=== PATIENT | male | born 1980 | race Caucasian/White ===

== ENCOUNTER 2019-12-23 11:49 | Emergency (ER) | payer SELFPAY ==
[2019-12-23 12:20] VITALS: BP 120/69; PULSE 79; RESP 18; TEMP 36.2; O2SAT 97; BMI 29.0
--- NOTE | 2019-12-23 12:40 | XRR_ITS ---
PROCEDURE INFORMATION: Exam: XR Left Foot Complete Exam date and time: 12/23/2019 12:53 PM Age: 39 years old Clinical indication: Injury or trauma; Injury history: Kicked a picnic table; Initial encounter; Blunt trauma; Foot; Left; Injury date: 12/23/19; Additional info: Left great toe pain and left plantar foot pain TECHNIQUE: Imaging protocol: XR Left foot. Views: 3 or more views. COMPARISON: No relevant prior studies available. FINDINGS: Bones/joints: Negative for acute bony abnormality. Soft tissues: Normal. XR/XR foot LT min 3V* [id number] IMPRESSION: No acute findings.
--- NOTE | 2019-12-23 12:47 | ED_ITS ---
HPI - Extremity Problem General: Chief complaint: Extremity Injury, Lower Stated complaint: LEFT BIG TOE PAIN Time Seen by Provider: 12/23/19 12:41 History of Present Illness: HPI Narrative: 39-year-old male patient presents to the emergency department with left great toe pain and plantar left foot pain. He reports kicked a full table approximately 1 hour prior to [place] the park injuring the left great toe. He reports walked to the hospital from the park to the hospital with bare feet. He reports left foot pain to the plantar surface x1 month. MD Complaint: extremity pain (Left great toe) Onset (ago): hour(s) (Approximately 1 hour prior to arrival) Pain Consistency: constant Location: left, lower extremity and other (Left great toe) Severity scale (1-10): 3 Quality: aching Radiation: proximal Relieving factors: nothing Exacerbating factors: range of motion and weight bearing Associated symptoms: Reports no associated symptoms; Deny chest pain, fever(s) or rash Context: other (Patient is not wearing shoes, he reports left his shoes at the park.) Review of Systems General: Reports: 10 or more systems reviewed and unremarkable except in HPI and below Const: Denies: fever(s), chills or diaphoresis Eyes: Denies: blurry vision or eye redness ENMT: Denies: throat pain, dental pain or disequilibrium Card: Denies: chest pain, palpitations or irregular heart rhythm Resp: Denies: dyspnea, productive cough, non-productive cough or wheezing GI: Denies: abdominal pain, nausea or vomiting : Denies: dysuria Musc: Reports: extremity pain (left distal foot) and joint pain (left toe pain); Denies: neck pain or back pain Skin/Breast: Denies: rash or pruritus Neuro: Denies: headache(s), weakness in extremities or behavioral changes Quan/Lymph: Denies: easy bruising Physical Exam Const: COMMON NORMALS: no acute distress, patient oriented x3, healthy appearing and alert GENERAL APPEARANCE: cooperative, comfortable and well hydrated HENMT: COMMON NORMALS: normocephalic, Normal external nose present and moist oral mucous membranes HEAD & SCALP: normocephalic NOSE: Normal external nose present Eye: COMMON NORMALS: Equal, round and reactive pupils present and EOMs intact bilaterally GENERAL EYE: appearance normal, both eyes and all related structures PUPIL: Yes Equal, round and reactive pupils present Neck/C-Spine: COMMON NORMALS: full ROM and no lymphadenopathy GENERAL: Yes normal visual inspection and Yes trachea midline CERVICAL SPINE: Yes cervical ROM normal, Yes normal cervical lordosis, No pain with cervical ROM, No Cervical spine tenderness and No Paracervical muscle tenderness Lymph: LYMPHATIC: no lymphadenopathy noted Chest: COMMONS NORMALS: normal inspection of the chest Resp: COMMON NORMALS: normal respiratory effort and clear to auscultation bilaterally AUSCULTATION: clear to auscultation bilaterally Cardio: COMMON NORMALS: regular rhythm, S1 normal heart sound present, S2 normal heart sound present and Peripheral pulses 2+ throughout RHYTHM: regular rhythm HEART SOUNDS: S1 normal heart sound present and S2 normal heart sound present PERIPHERAL PULSES: Peripheral pulses 2+ throughout GI: COMMON NORMALS: Soft to palpation and non-tender INSPECTION: Yes normal to inspection PALPATION: Yes Soft to palpation : COMMON NORMALS: Yes no CVA tenderness BLADDER/KIDNEY EXAM: Yes no CVA tenderness Back/Pelvis: COMMON NORMALS: no CVA tenderness and thoracic and lumbar spine normal to inspection Extremity: COMMON NORMALS: capillary refill normal NARRATIVE EXTREMITY EXAM: Scattered abrasions noted to the dorsal anterior shins. No signs and symptoms of infection GENERAL: Yes normal exam except as noted, No calf tenderness and No pulses abnormal LEFT LOWER EXTREMITY: Yes ankle joint (intact, negative drawer exam) Left ankle: Yes ROM (full ) and Yes foot & digits Left foot and digits: Yes inspection (Left plantar foot with debris, again not wearing shoes), Yes palpation (Pain to the distal first MTP, plantar surface only, no open wounds), Yes ROM and Yes neurovascular exam (Intact) OTHER: Left ankle with dorsiflexion and extension noted without pain with range of motion, EXTREMITY IMAGE (FRONT): 1. left toenail with slight nail avulsion distally, medially, limited dorsiflexion/extension secondary to pain, full range of motion to all remaining toes noted on the left foot. Neuro: COMMON NORMALS: patient oriented x3 and no focal motor deficits SENSORIUM/ORIENTATION: Yes alert Psych: COMMON NORMALS: mental status grossly normal, Normal thought process present and cooperative ACTIVITY/MOTOR BEHAVIOR: Yes appropriate eye contact THOUGHT PROCESS: Normal thought process present Skin: COMMON NORMALS: no rashes or lesions noted and turgor normal GENERAL SKIN EXAM: no rashes or lesions noted and turgor normal Course Vital Signs: Vital signs: Vital Signs Temperature 97.2 F L 12/23/19 12:20 Pulse Rate 66 12/23/19 13:50 Respiratory Rate 16 12/23/19 13:50 Blood Pressure 101/61 12/23/19 13:50 Pulse Oximetry 95 12/23/19 13:50 MDM - Extremity (Nontraumatic) Imaging Data^: Xray Ortho: Radiologist's impression: [address] [address] XRay Report Signed Patient: Jitendra Mohamud #: [id number] : 1980Acct#:[id number] Age/Sex: 39 / MADM Date: 12/23/19 Loc: ERRoom/Bed: Attending Dr: Ordering Provider/Ordering MD: Raysa Navarro Date of Service: 12/23/19 Procedure(s): XR foot LT min 3V* [id number] Accession Number(s): [id number] Report Number: [id number] PROCEDURE INFORMATION: Exam: XR Left Foot Complete Exam date and time: 12/23/2019 12:53 PM Age: 39 years old Clinical indication: Injury or trauma; Injury history: Kicked a picnic table; Initial encounter; Blunt trauma; Foot; Left; Injury date: 12/23/19; Additional info: Left great toe pain and left plantar foot pain TECHNIQUE: Imaging protocol: XR Left foot. Views: 3 or more views. COMPARISON: No relevant prior studies available. FINDINGS: Bones/joints: Negative for acute bony abnormality. Soft tissues: Normal. XR/XR foot LT min 3V* [id number] IMPRESSION: No acute findings. Dictated By:Harpreet Lam Signed By:Eula Lam Date/Time:12/23/19 1353 DD/ 1352 Discharge Plan Discharge Patient Disposition: Home Clinical Impression: Abrasion Contusion Qualifiers: Encounter type: initial encounter Contusion area: toe Toe: great toe Damage to nail status: with damage Laterality: left Qualified Code(s): S90.212A - Contusion of left great toe with damage to nail, initial encounter Foot pain Qualifiers: Laterality: left Qualified Code(s): M79.672 - Pain in left foot Condition: Stable Discharge Orders: Discharge Order (Routine); Ordered 12/23/19 Ordered By: Raysa Navarro Discharge Diet: Usual diet Discharge Activity: Resume usual activity and Limit activity as instructed Patient Instructions: Subungual Hematoma (ED), Abrasion (ED) Activity Restrictions/Additional Instructions: You will need to follow-up with podiatry, Dr. Baez for left foot pain. Remain in postop shoe until pain has improved Monitor the left toenail for infection, may complete warm water soaks several times daily to help with pain keep the left foot elevated as much as possible to help with pain Wear shoes to prevent injury to the feet director of radio services will be contacting you in regards to an appointment with Dr. Baez. You can take ibuprofen or Tylenol as needed for pain. 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
--- NOTE | 2019-12-23 13:31 | DCPLANNER ---
title manager had message to schedule a follow up appointment for patient with ortho. title manager called the ortho clinic, spoke with Pat, gave clinic patients information. title manager was told that patients information would be printed and reviewed. Clinic will call patient with appointment information.
[2019-12-23] MEDS: tetanus-dipt-pertussis 0.5 mL SDV IM (13:41)
[2019-12-23 13:50] VITALS: BP 101/61; PULSE 66; RESP 16; O2SAT 95
--- NOTE | 2019-12-23 13:51 | PC.NURSE ---
vo with readback from provider pool to hold post op shoe.
--- NOTE | 2020-01-05 12:45 | DCPLANNER ---
photography manager called ortho, spoke with Pat to confirm that a follow up appointment had been scheduled for patient. photography manager was told that clinic has tried several times to contact patient to schedule an appointment, unable to contact patient.
== END 2019-12-23 13:54 | disposition home or self-care (01) ==
PROVIDERS: Emergency Provider Nurse Practitioner Family
DX: S90.212A Contusion of left great toe with damage to nail, initial encounter (principal); W22.09XA Striking against other stationary object, initial encounter; Z23 Encounter for immunization
CPT/HCPCS: 12345; 73630; 90471; 90715; 99281; 99283

== ENCOUNTER 2019-12-24 00:44 | Inpatient (IN) | payer SELFPAY ==
[2019-12-24 00:46] VITALS: BP 161/100; PULSE 110; RESP 16; TEMP 36.6; O2SAT 99; BMI 23.3
--- NOTE | 2019-12-24 00:50 | ED_ITS ---
HPI - Psych General: Chief Complaint: Psychiatric Symptoms Stated Complaint: SI Time Seen by Provider: 12/24/19 00:45 Source: patient and EMS Mode of arrival: EMS Limitations: no limitations History of Present Illness: HPI Narrative: 39-year-old male states has been having increased suicidal thoughts. He states he has been doing meth today and this felt like killing himself. He states he feels like taking a turkey baster full of acid. He states he feels like he needs to be admitted in the [facility]. He denies any alcohol use. He did admit to using methamphetamine. Denies any worsening improving factors. Associated symptoms: Reports depression and suicidal ideation Review of Systems Const: Denies: fever(s), chills, body aches or change in appetite Eyes: Denies: blurry vision or eye discomfort ENMT: Denies: throat pain or dental pain Card: Denies: chest pain Resp: Denies: dyspnea GI: Denies: abdominal pain, nausea, vomiting or diarrhea : Denies: dysuria Musc: Denies: neck pain or back pain Skin/Breast: Denies: rash Neuro: Denies: headache(s) Psych: Reports: depression and suicidal ideation Quan/Lymph: Denies: easy bruising All/Imm: Denies: urticaria Physical Exam Const: COMMON NORMALS: no acute distress, patient oriented x3 and healthy appearing HENMT: COMMON NORMALS: normocephalic and atraumatic HEAD & SCALP: normocephalic and atraumatic Eye: COMMON NORMALS: Equal, round and reactive pupils present and EOMs intact bilaterally PUPIL: Yes Equal, round and reactive pupils present Neck/C-Spine: COMMON NORMALS: full ROM and supple Chest: COMMONS NORMALS: normal inspection of the chest and normal palpation of entire chest wall Resp: COMMON NORMALS: normal respiratory effort, No retractions, No use of accessory muscles and clear to auscultation bilaterally AUSCULTATION: clear to auscultation bilaterally Cardio: COMMON NORMALS: regular rate, regular rhythm and No murmurs present (Cardio) RATE: regular rate RHYTHM: regular rhythm GI: COMMON NORMALS: Normal to inspection, nondistended, normoactive bowel sounds present, Soft to palpation, non-tender and no masses PALPATION: Yes Soft to palpation Extremity: COMMON NORMALS: normal to inspection and full ROM Neuro: COMMON NORMALS: patient oriented x3, moves all extremities and no focal motor deficits Psych: COMMON NORMALS: mental status grossly normal and cooperative ATTITUDE: Yes paranoid MOOD & AFFECT: Yes anxious THOUGHT CONTENT: Yes Suicidality present Skin: COMMON NORMALS: no rashes or lesions noted and no wounds GENERAL SKIN EXAM: no rashes or lesions noted MDM - Psych MDM Narrative: Medical decision making narrative: Patient presents here with suicidal ideation with a plan to kill himself. Patient placed on a 96-hour hold I spoke to psychiatrist and will admit. Patient is medically cleared. Lab Data: Labs: Lab Results 12/24/19 12/24/19 12/24/19 Range/Units 00:55 00:55 01:08 WBC 14.0 H (4.0-10.0) 10^3/ uL RBC 5.23 (4.1-5.3) 10^6/u L Hgb 14.5 (11.7-16.6) g/dL Hct 44.9 (42.0-52.0) % MCV 85.9 (80-94) fL MCH 27.7 L (28.0-34.0) pg MCHC 32.3 (30.0-36.0) g/dL RDW 13.7 (12.1-15.1) % Plt Count 243 (130-400) 10^3/c mm MPV 9.6 (7.4-10.4) fL Neut % (Auto) 77.1 % Lymph % (Auto) 14.8 % Ashe % (Auto) 6.9 % Eos % (Auto) 0.6 % Baso % (Auto) 0.3 % Neut # (Auto) 10.78 H (1.8-7.7) 10^3/u L Lymph # (Auto) 2.1 (0.8-4.8) 10^3/u L Ashe # (Auto) 1.0 H (0.2-0.9) 10^3/u L Eos # (Auto) 0.1 (0.0-0.8) 10^3/u L Baso # (Auto) 0.0 (0.0-0.1) 10^3/u L Nucleated RBC % (a uto) 0 % Nucleated RBCs # 0.0 /100WBC Sodium 136 (136-145) mmol/L Potassium 3.6 (3.5-5.1) mmol/L Chloride 97 L (98-107) mmol/L Carbon Dioxide 28 (22-29) mmol/L Anion Gap 14.6 (5-19) BUN 21 H (6-20) mg/dL Creatinine 1.2 (0.7-1.2) mg/dL GFR Calculation 68.1 L (90-130) mL/min Glucose 124 H (65-115) mg/dL Calculated Osmolal ity 286 (285-295) mOsm/k g Calcium 8.8 (8.5-10.5) mg/dL Total Bilirubin 0.5 (0.15-1.2) mg/dL AST 92 H (0-40) U/L ALT 72 H (0-41) U/L Alkaline Phosphata se 75 (40-130) IU/L Total Protein 7.9 (6.6-8.7) g/dL Albumin 4.6 (3.5-5.2) g/dL Globulin 3.3 (1.3-4.6) g/dL Salicylates < 0.3 L (3-10) mg/dL Urine Opiates Scre en Negative (Negative) ng/mL Acetaminophen < 5.0 L (10-30) ug/mL Ur Barbiturates Sc reen Negative (Negative) ng/mL Ur Phencyclidine S crn Negative (Negative) ng/mL Ur Amphetamines Sc reen Positive H (Negative) ng/mL U Benzodiazepines Scrn Negative (Negative) ng/mL Urine Cocaine Scre en Negative (Negative) ng/mL U Marijuana (THC) Screen Negative (Negative) ng/mL Ethyl Alcohol < 10 (0-10) mg/dL Discharge Plan Discharge Patient Disposition: Admitted As Inpatient Admit Provider: Kelvin Mtz Clinical Impression: Suicidal ideation, Methamphetamine abuse Condition: Stable Discharge Date/Time: 12/24/19 01:49 Coding Level of Care Code ED Nuclear Medicine Specialist for [facility] Fwmaya Exam Comprehensive
[2019-12-24 01:07] LABS: Basophils % 0.3 %; Eosinophils # 0.1 10^3/uL (0.0-0.8); Eosinophils % 0.6 %; Hematocrit 44.9 % (42.0-52.0); Hemoglobin 14.5 g/dL (11.7-16.6); Lymphocytes # 2.1 10^3/uL (0.8-4.8); Lymphocytes % 14.8 %; Mean Corpuscular HGB Conc 32.3 g/dL (30.0-36.0); Mean Corpuscular Hemoglobin 27.7 pg (28.0-34.0); Mean Corpuscular Volume 85.9 fL (80-94); Mean Platelet Volume 9.6 fL (7.4-10.4); Monocytes % 6.9 %; Neutrophils # 10.78 10^3/uL (1.8-7.7); Neutrophils % 77.1 %; Nucleated Red Blood Cells % 0 %; Platelet Count 243 10^3/cmm (130-400); Red Blood Count 5.23 10^6/uL (4.1-5.3); Red Cell Distribution Width 13.7 % (12.1-15.1)
[2019-12-24] MEDS: LORazepam 1 mg Tablet 2 MG PO (01:09)
[2019-12-24 01:24] LABS: Alanine Aminotransferase 72 U/L (0-41); Albumin Level 4.6 g/dL (3.5-5.2); Alkaline Phosphatase 75 IU/L (40-130); Anion Gap 14.6 (5-19); Aspartate Amino Transferase 92 U/L (0-40); Blood Urea Nitrogen 21 mg/dL (6-20); Calcium 8.8 mg/dL (8.5-10.5); Carbon Dioxide 28 mmol/L (22-29); Chloride 97 mmol/L (98-107); Globulin 3.3 g/dL (1.3-4.6); Glomerular Filtration Rate 68.1 mL/min (90-130); Glucose 124 mg/dL (65-115); Osmolality Calculated 286 mOsm/kg (285-295); Potassium 3.6 mmol/L (3.5-5.1); Sodium 136 mmol/L (136-145); Total Bilirubin 0.5 mg/dL (0.15-1.2); Total Protein 7.9 g/dL (6.6-8.7)
[2019-12-24 01:28] LABS: Amphetamines Screen Urine Positive (Negative); Barbiturates Screen Urine Negative (Negative); Benzodiazepines Screen Urine Negative (Negative); Cocaine Screen Urine Negative (Negative); Opiate Screen Urine Negative (Negative); PCP Screen Urine Negative (Negative); THC Screen Urine Negative (Negative)
[2019-12-24 01:43] LABS: Acetaminophen < 5.0 ug/mL (10-30); Alcohol Level < 10 mg/dL (0-10); Salicylate < 0.3 mg/dL (3-10)
[2019-12-24 02:04] VITALS: BP 153/84; PULSE 102; RESP 21; TEMP 37; O2SAT 99
--- NOTE | 2019-12-24 02:36 | PC.NURSE ---
Patient wants to be tested for covid
[2019-12-24] MEDS: OLANZapine 5 mg ODT PO (03:35)
--- NOTE | 2019-12-24 03:37 | PC.NURSE ---
Has bandaid on left great toe. Stated he kicked a chair. No redness, no swelling, no sign of infection.
[2019-12-24] MEDS: hyDROXYzine 25 mg Capsule 50 MG PO (03:46)
--- NOTE | 2019-12-24 03:47 | PC.NURSE ---
PRN given for anxiety visteril 50mg Po. Pt is very agitated and paranoid/guarded. His DOA is meth, which he told me he smoked yesterday morning early. His pupils are dilated. This patient is looking around the room with a scared look on his face, states do you hear that and dont you see the shadows . He asked me if anyone in his room. He said someone or something is looking at him. He is looking under the bed for non existent people and shadows in his room. He attempted to go to the dayroom but saw the shadows there also. He s looking in the bathroom, under the bed, and the closet for the noises he is hearing. He stated that he is not comfortable on his bed it keeps moving and going up with him on it. This is not possible as the beds to do not change positions in this unit. Will continue to monitor this patients progress.
--- NOTE | 2019-12-24 04:32 | PC.NURSE ---
Patient attempted to cheek his medication but it was found and administered. Verified that it was taken.
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
[2019-12-24 06:00] VITALS: BP 103/71; PULSE 73; RESP 20; TEMP 37; O2SAT 96
[2019-12-24 14:00] VITALS: BP 125/71; PULSE 86; RESP 18; TEMP 37.5; O2SAT 98
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
[2019-12-24] MEDS: nicotine 2 mg Gum BUCCAL (20:50)
[2019-12-24 20:53] VITALS: BP 126/71; PULSE 75; RESP 20; TEMP 37.1; O2SAT 97
[2019-12-25 06:00] VITALS: BP 122/77; PULSE 82; RESP 20; TEMP 36.7; O2SAT 98
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
[2019-12-25] MEDS: fluoxetine 20 mg Capsule PO (11:10)
[2019-12-25 14:00] VITALS: BP 121/74; PULSE 73; RESP 18; TEMP 37.6; O2SAT 97
[2019-12-25] MEDS: hyDROXYzine 25 mg Capsule 50 MG PO (20:50)
[2019-12-25 20:51] VITALS: BP 125/71; PULSE 78; RESP 14; TEMP 36.4; O2SAT 95
[2019-12-25] MEDS: trazodone 50 mg Tablet PO (20:51)
[2019-12-25] MEDS: nicotine 2 mg Gum BUCCAL (20:51)
--- NOTE | 2019-12-25 21:34 | PC.NURSE ---
PRN TRAZODONE/VISTERIL PT RECEIVED TRAZODONE 50MG PO FOR SLEEP AND HE IS SLEEPING NOW. PT RECEIVED VISTERIL 50MG PO STATING HE WAS ANXIOUS ON ADMINISTRATION BUT IS RESTING NOW.
--- NOTE | 2019-12-26 00:51 | PC.NURSE ---
Follow up TRAZODONE/VISTERIL Patient is sleeping soundly without any apparent signs of distress at this time
[2019-12-26] MEDS: trazodone 50 mg Tablet PO ×2 (04:14→21:42)
--- NOTE | 2019-12-26 04:25 | PC.NURSE ---
Addendum entered by Sujatha Soliz RN 12/26/19 06:39: Patient is sleeping in his room Original Note: PRN Trazodone 50mg PO given to help sleep.
[2019-12-26 06:00] VITALS: BP 120/67; PULSE 62; RESP 17; TEMP 36.6; O2SAT 96
[2019-12-26] MEDS: fluoxetine 20 mg Capsule PO (08:45)
--- NOTE | 2019-12-26 12:22 | P.PN_ITS ---
Subjective NPU Subjective: Interval history: Valentin presented today with a bit of a resumption in his irritability. If for some reason took issue to the fact that I reported our search for his court date yielded nothing. He took that to mean we are going to try to keep him longer. He reports that he is doing fine on the medication and he denied any issues other than wanting to be discharged prior to this court date tomorrow. He is eating fine and sleeping a lot. Mental Status Exam MSE Comments: There is a well-nourished well-developed white male with limited dress, grooming and eye contact. No abnormal movements except for mild psychomotor retardation. Cooperative with exam in mild distress. Speech was normal rate and decreased volume. Mood reported as depressed, affect irritable. Thought process organized. Thought content: Patient denied suicidal or homicidal ideation, no delusions reported, but some paranoia noted, he denied any auditory or visual hallucinations but appeared to be having some prior to admission. He was alert and oriented x3. Insight and judgment are limited but improving. Impulse control is impaired. Vitals/I&O/Wt Last Vital Signs Temp 97.9 F 12/26/19 06:00 Pulse 62 12/26/19 06:00 Resp 17 12/26/19 06:00 BP 120/67 12/26/19 06:00 Pulse Ox 96 12/26/19 06:00 Weight last 48 hrs Weight 64.682 kg Data NPU : 12/24/19 00:55 12/24/19 00:55 A&P Additional A&P Information (1) Methamphetamine abuse: (2) Suicidal ideation: (3) Contusion: (4) Abrasion: (5) Foot pain: (6) Withdrawal from methamphetamine: (7) Depression: (8) Homeless: (9) Psychosis: This is a 39-year-old white male with significant psychosocial stressors with an active methamphetamine addiction who presented in active withdrawal with suicidal ideation intermittently endorsed as well as low mood and observed paranoid/psychotic behavior who presents now wanting to be discharged with on a 96-hour hold. 1. Continue current medication. 2. Continue every 15 minute checks for safety. 3. Encourage individual, group and milieu therapy. 4. Encourage follow-up with a sober living program at the highest level of care to which he is willing to commit. Involuntary Hold Information 96 Hour Hold: 96 Hour Involuntary Admission: Yes Attestations NPU Medical Necessity Statement*: Inpatient hospitalization is medically necessary and the clinically appropriate intervention at this time. We will observe and recommend medications as indicated. We will evaluate for safety for discharge in the next hold. Likely length of stay 1-2 days. Coding Level of Care Code Acute Zipper Setter Chainstitch for [facility]
[2019-12-26 14:00] VITALS: BP 129/81; PULSE 65; RESP 18; TEMP 37.1; O2SAT 99
[2019-12-26 20:46] VITALS: BP 141/80; PULSE 73; RESP 18; TEMP 36.7; O2SAT 98
[2019-12-26] MEDS: hyDROXYzine 25 mg Capsule 50 MG PO (21:12)
[2019-12-27 06:00] VITALS: BP 113/64; PULSE 96; RESP 17; TEMP 36.5; O2SAT 57
[2019-12-27] MEDS: fluoxetine 20 mg Capsule PO (07:36)
[2019-12-27 10:02] VITALS: BP 113/64; PULSE 96; RESP 17; TEMP 36.5; O2SAT 57
--- NOTE | 2019-12-27 10:27 | P.DS_ITS ---
Diagnoses at Discharge Discharge Diagnosis (1) Methamphetamine abuse: Status: Acute (2) Suicidal ideation: Status: Resolved (3) Contusion: Status: Acute Qualifiers: Contusion area: toe Damage to nail status: with damage Encounter type: initial encounter Laterality: left Toe: great toe Qualified Code(s): S90.212A - Contusion of left great toe with damage to nail, initial encounter (4) Abrasion: Status: Acute (5) Foot pain: Status: Acute Qualifiers: Laterality: left Qualified Code(s): M79.672 - Pain in left foot (6) Withdrawal from methamphetamine: Status: Resolved (7) Depression: Status: Acute (8) Homeless: Status: Acute (9) Psychosis: Status: Resolved Reason for Visit Reason for Visit: SI Brief History: Valentin Mohamud is a 39 year old male who presented to the emergency department with the following report: 39-year-old male states has been having increased suicidal thoughts. He states he has been doing meth today and this felt like killing himself. He states he feels like taking a turkey baster full of acid. He states he feels like he needs to be admitted in the psychiatric [facility]. He denies any alcohol use. He did admit to using methamphetamine. Denies any worsening improving factors. Associated symptoms: Reports depression and suicidal ideation. Valentin presented to the unit and very slowly acclimated to the individual group and milieu therapies as he is clearly in methamphetamine withdrawal with juxtaposing periods of lucidity and being near obtunded. Multiple efforts were made to get a reasonable assessment of the situation. Eventually at about 9:00 PM on the night of the day of admission he was alert again and was demanding to be discharged. He was confused feeling like he was on a voluntary commitment but he was advised that he was on a 96-hour hold and that that hold with in 12/30/2019 early in the morning. He reported that there were strange stacia on that led to him being in the hospital but he did not want to elaborate. He Asserting though that he was safe and there will be no reason for him to be held. He was advised that we would assess him daily and get collateral i nformation on the assertions and his affidavits. He endorses being very anxious because he is homeless and he is afraid his shit will end up stolen if he does not get back out there right away. He did not have any clear plan of where to go and what he was going to do so he agreed to have a more robust conversation in the morning. We did review his last hospitalization which was in 2018 and he was seen by this continuity writer. He agreed that it represented a accurate assessment of that historical data without significant changes in that time. An excerpt can be seen below. Per his last inpatient [facility] eval: History of Present Illness Date of Service: Dec 28, 2018 Chief Complaint: I'm cold. I don't know. HPI: Valentin presented today reporting that things have been pretty hectic. He initially very much minimized any drug use but then could not explain why he was acting erratically with the police saying that he needed some help. He sometimes. Endorsed depression and anxiety but was fairly ambivalent about the idea of starting an anti-depressant/antianxiety agent. When he entered the office he was shivering fairly aggressively. In talking about being cold on the outside but burning up on the inside. He could not really explain what that meant. Otherwise he reported that he is not employed, he is likely homeless and that he does not have any prospect on what he is going to do next. He reports he is sleeping well and is eating okay. Per ED eval: HISTORY OF PRESENT ILLNESS Chief Complaint: ANXIOUS, DEPRESSED and SUICIDAL THOUGHTS. This started today. The patient has experienced situational problems but not exhibited a behavior change and was not found wandering and is compliant with medication. Recent drug use. No recent alcohol consumption. Has been depressed but eating or sleeping and had suicidal thoughts. He has had anxiety. No anger, unusual behavior, paranoia, delusions or self-injury inflicted. The symptoms are described as moderate. No injury is present. 38-year-old male brought in by EMS and police. They were called to the scene after he had held a knife to his own throat threatening to kill himself in front of the people around him. He evidently expressed thoughts of killing himself to police on the scene as well. He was distraught, tearful, and ask for help. He presents to the ER saying I'm not a psych patient . I just wanted somebody to talk to . Similar symptoms previously. None. Recent medical care: Not recently seen/assessed. REVIEW OF SYSTEMS No headache, dizziness, weakness, chest pain or palpitations. No abdominal pain, vomiting, diarrhea, black stools or fever. No sore throat, cough, difficulty breathing, urinary frequency or skin rash. No enlarged lymph nodes or joint pain. All other systems reviewed and are negative. PAST HISTORY See nurses notes. ( mental illness). SOCIAL HISTORY Heavy tobacco smoker- 1-2 packs per day. Heavy alcohol use. History of drug use history of drug use. FAMILY HISTORY No history of suicide attempts. ADDITIONAL NOTES The nursing notes have been reviewed. PHYSICAL EXAM Vital Signs: 12/27/2018 21:59 BP: 111/65. HR: 102. RR: 16. O2 saturation: 93%. Temp: 98.1 F. Appearance: Alert. No acute distress. Appearance is normal. He appears intoxicated and agitated. Eyes: Pupils equal, round and reactive to light. Neck: Normal inspection. Neck supple. CVS: Normal heart rate and rhythm. Heart sounds normal. Respiratory: Breath sounds normal. Chest nontender. Abdomen: Soft and nontender. Back: No tenderness. Skin: Normal skin color. Extremities: Extremities exhibit normal ROM. No lower extremity edema. Psych / Neuro: Speech is slurred. Cognition normal. He expresses suicidal thoughts. He does not appear to understand his illness. Cranial nerves normal (as tested). No cerebellar findings. No motor deficit. Allergies: Coded Allergies: NO KNOWN ALLERGIES (Unverified , 12/28/18) Active Meds: Current Hospital Medications: Medications (Trade) Dose Ordered Sig/Dhara Route PRN Reason Start Time Stop Time Status Last Admin Dose Admin Lorazepam (Ativan Tab) 0.5 mg Q4H PRN PO FOR MILD ANXIETY 12/27/18 23:00 Lorazepam (Ativan Tab) 1 mg Q4H PRN PO FOR MODERATE ANXIETY 12/27/18 23:00 Lorazepam (Ativan Tab) 2 mg Q4H PRN PO FOR SEVERE ANXIETY 12/27/18 23:00 12/27/18 23:55 Lorazepam (Ativan Inj) 2 mg Q4H PRN IM For Severe Aggression 12/27/18 23:00 Haloperidol Lactate (Haldol Inj) 5 mg Q4H PRN IM Severe Aggression 12/27/18 23:00 Diphenhydramine HCl (Benadryl Inj) 50 mg ONCE PRN IV Severe Extrapyramidal Symptoms 9/22/19 23:00 Benztropine Mesylate (Cogentin Tab) 1 mg BID PRN PO Mild Extrapyramidal symptoms 12/27/18 23:00 Benztropine Mesylate (Cogentin Inj) 1 mg ONCE PRN IM Severe Extrapyramidal Symptom 12/27/18 23:00 Acetaminophen (Tylenol Tab) 650 mg Q4H PRN PO FOR MILD PAIN 12/27/18 23:00 Trazodone HCl (Trazodone) 50 mg BEDTIME PRN PO FOR SLEEP 12/27/18 23:00 Nicotine (Nicoderm Patch) 21 mg DAILY PRN TD FOR WITHDRAWAL 12/27/18 23:00 Nicotine Polacrilex (Nicotine Gum) 2 mg Q2H PRN PO Withdrawal 12/27/18 23:00 Haloperidol (Haldol Tab) 5 mg Q4H PRN PO For agitation 12/27/18 23:00 12/27/18 23:54 Lorazepam (Ativan Tab) 2 mg Q4H PRN PO FOR AGITATION 12/27/18 23:00 12/27/18 23:53 Thiamine Mononitrate (Thiamine Tab) 100 mg DAILY PO 12/28/18 11:15 Multivitamins Therapeutic (Therapeutic Multivitamin) 1 ea DAILY PO 12/28/18 11:15 Folic Acid/ Cyanocobalamin/ pyridoxin (Folic Acid Tab) 1 mg DAILY PO 12/28/18 11:15 Home Meds: Home Medications: Active No Active Prescriptions or Reported Medications Past Medical History Other Family Medical History: He reports that he has significant mental health issues in his family. He endorses having significant addiction issues in his family. But he was unaware if there were any suicide attempts in his family. Other Past Social History: Developmental history: He reports that he is the product of a normal . He endorses learning to walk and talk and meeting his developmental milestones on time. He reports that he did not have speech therapy or learning support, emotional support but did endorse possibly some special education classes. Psychosocial history: Is a product of his 2 parents which he reports are together to this day. He reports that he has a brother who shares the same two parents and 2 half sisters through his mother. Childhood was ok, no emotional, physical and emotional abuse.He did not graduate from high school or get his GED. He is heterosexual with the longest relationship being 4 years. Never been , no children, no service, or lutheran belief system. Never really worked, currently homeless. Legal history. Numerous incarcerations, longest 2 years at one time. Hospital Course Hospital Course The patient presented to the emergency room reporting increased suicidal thoughts. He endorsed methamphetamine use on December 22 and feeling like killing himself. He stated he felt like taking a turkey blaster full of acid. He endorsed needing to be admitted for psychiatric treatment for depression and suicidal ideation. He was admitted to the neuropsychiatric unit for definitive treatment of those issues. Additionally, once on the unit, it was clear that he was also suffering from paranoia and psychosis. He slowly acclimated to the individual, group, and milieu therapies provided. We started Prozac, which he had a positive response to, and he also had significant improvement from the resolution of the methamphetamine withdrawal, and the psychosis that was likely associated. During the hospitalization, the patient had routine laboratory studies which were within normal limits, except for a few outliers. Additionally, the patient had a general medical evaluation which was within normal limits and revealed no new acute processes. Discharge Summary At the time of discharge the patient denied all lethality, was absent psychosis, and mood and anxiety were well managed. The patient endorsed a plan to avoid all drugs of abuse and to follow-up with outpatient services, as recommended. The patient was evaluated and deemed to be absent credible lethality, and had achieved the maximum benefit from an inpatient hospitalization, and so he was discharged. Involuntary Hold Information 96 Hour Hold: 96 Hour Involuntary Admission: Yes Mental Status Exam MSE Comments: This is a well-nourished, well-developed, white male, with tattoos on his exposed skin, with adequate dress, grooming, and eye contact. No abnormal movements. Cooperative with exam in no acute distress. Speech was normal rate and volume. Mood described as pretty good; affect congruent. Thought process, organized. Thought content: patient denied any suicidal or homicidal ideation, there were no delusions reported or noted, patient denied any auditory or visual hallucinations. Attention, concentration, and memory appeared intact but none were formally tested. He is alert and oriented times three. Insight and judgment are improving. Impulse control is limited. Discharge Data Vitals: Last Vital Signs Temp 97.7 F 12/27/19 10:02 Pulse 96 12/27/19 10:02 Resp 17 12/27/19 10:02 BP 113/64 12/27/19 10:02 Pulse Ox 57 L 12/27/19 10:02 Discharge Plan Discharge Patient Disposition: Home Condition: Stable Prescriptions: New trazodone 50 mg Tablet 50 mg PO BEDTIME PRN (Reason: Sleep) 30 Days Qty: 30 RF: 1 fluoxetine 20 mg Capsule 20 mg PO DAILY 30 Days Qty: 30 RF: 1 Discharge Orders: Discharge Order (Routine); Ordered 12/27/19 Ordered By: Kelvin Mtz Referrals: [facility] [Other] (this is where you can go for treatment for substance abuse issues) [facility] (this is a homeless retirement in [place]. They also have a program to help people with substance abuse issues. ) [facility] in [place], [place] [Other] ([facility] has mental health services and primary care service. You could follow-up there. ) Discharge Diet: Regular Discharge Activity: Resume usual activity Patient Instructions: Fluoxetine (By mouth), Trazodone (By mouth) Discharge Date/Time: 12/27/19 10:47 Discharge Attestations NPU Time Spent in Discharge Care*: less than 30 min Specific Discharge Activities: Specific discharge activities: educating patient, discussing with case management rn/social workers/dc planners, documenting/other paperwork and evaluating patient/reviewing data Coding Level of Care Code Acute Director Translation for Feliz Fwd Diagnoses Methamphetamine abuse F15.10 Suicidal ideation R45.851 Contusion S90.212A Contusion area: toe Damage to nail status: with damage Encounter type: initial encounter Laterality: left Toe: great toe Abrasion T14.8XXA Foot pain M79.672 Laterality: left Withdrawal from methamphetamine F15.23 Depression F32.9 Homeless Z59.0 Psychosis F29
== END 2019-12-27 10:47 | disposition home or self-care (01) | DRG 885 ==
LOC: ER 01:29 → NP 01:38
PROVIDERS: Emergency Medicine; Admitting Provider Psychiatry & Neurology Psychiatry; Visit Provider Psychiatry & Neurology Psychiatry
DX: F23 Brief psychotic disorder (principal); F15.23 Other stimulant dependence with withdrawal; R45.851 Suicidal ideations; S90.212A Contusion of left great toe with damage to nail, initial encounter; X58.XXXA Exposure to other specified factors, initial encounter; F32.9 Major depressive disorder, single episode, unspecified; Z59.0 Homelessness; F17.210 Nicotine dependence, cigarettes, uncomplicated
CPT/HCPCS: 12345; 80053; 80306; 80307; 85025; 99284

== ENCOUNTER 2020-01-07 18:13 | Inpatient (IN) | payer SELFPAY ==
[2020-01-07 18:39] VITALS: BP 145/96; PULSE 91; RESP 18; TEMP 36.8; O2SAT 97; BMI 23.3
--- NOTE | 2020-01-07 19:06 | W.ED.PSYCH ---
HPI - Psych General: Chief Complaint: Psychiatric Symptoms Stated Complaint: wants to go into the stress unit Time Seen by Provider: 01/07/20 19:03 Source: patient Mode of arrival: ambulatory Limitations: no limitations History of Present Illness: HPI Narrative: 9-year-old male states he has been having increased suicidal thoughts over the last week. He states he was on Prozac and doing well but stopped taking it and is now having severe depression and suicidality. Patient is voluntarily wanting to get help. Denies any worsening or improving factors. Associated symptoms: Reports depression and suicidal ideation Review of Systems Const: Denies: fever(s), chills, body aches or change in appetite Eyes: Denies: blurry vision or eye discomfort ENMT: Denies: throat pain or dental pain Card: Denies: chest pain Resp: Denies: dyspnea GI: Denies: abdominal pain, nausea, vomiting or diarrhea : Denies: dysuria Musc: Denies: neck pain or back pain Skin/Breast: Denies: rash Neuro: Denies: headache(s) Psych: Reports: depression and suicidal ideation Quan/Lymph: Denies: easy bruising All/Imm: Denies: urticaria PFSH ED PFSH: Social History Smoking and tobacco status: current every day smoker Physical Exam Const: COMMON NORMALS: no acute distress, patient oriented x3 and healthy appearing HENMT: COMMON NORMALS: normocephalic and atraumatic HEAD & SCALP: normocephalic and atraumatic Eye: COMMON NORMALS: Equal, round and reactive pupils present and EOMs intact bilaterally PUPIL: Yes Equal, round and reactive pupils present Neck/C-Spine: COMMON NORMALS: full ROM and supple Chest: COMMONS NORMALS: normal inspection of the chest and normal palpation of entire chest wall Resp: COMMON NORMALS: normal respiratory effort, No retractions, No use of accessory muscles and clear to auscultation bilaterally AUSCULTATION: clear to auscultation bilaterally Cardio: COMMON NORMALS: regular rate, regular rhythm and No murmurs present (Cardio) RATE: regular rate RHYTHM: regular rhythm GI: COMMON NORMALS: Normal to inspection, nondistended, normoactive bowel sounds present, Soft to palpation, non-tender and no masses PALPATION: Yes Soft to palpation Extremity: COMMON NORMALS: normal to inspection and full ROM Neuro: COMMON NORMALS: patient oriented x3, moves all extremities and no focal motor deficits Psych: COMMON NORMALS: mental status grossly normal, Normal thought process present and cooperative THOUGHT PROCESS: Normal thought process present THOUGHT CONTENT: Yes Suicidality present Skin: COMMON NORMALS: no rashes or lesions noted and no wounds GENERAL SKIN EXAM: no rashes or lesions noted MDM - Psych MDM Narrative: Medical decision making narrative: Patient presents here with suicidal ideation and voluntarily wants to be admitted. Patient is medically cleared stable for admission. I spoke to Dr. Leslie who is excepted. Lab Data: Labs: Lab Results 01/07/20 01/07/20 Range/Units 19:03 19:15 WBC 12.8 H (4.0-10.0) 10^3/ uL RBC 5.77 H (4.1-5.3) 10^6/u L Hgb 16.1 (11.7-16.6) g/dL Hct 50.2 (42.0-52.0) % MCV 87.0 (80-94) fL MCH 27.9 L (28.0-34.0) pg MCHC 32.1 (30.0-36.0) g/dL RDW 13.6 (12.1-15.1) % Plt Count 323 (130-400) 10^3/c mm MPV 9.4 (7.4-10.4) fL Neut % (Auto) 70.6 % Lymph % (Auto) 18.3 % [place] % (Auto) 9.5 % Eos % (Auto) 0.9 % Baso % (Auto) 0.2 % Neut # (Auto) 9.00 H (1.8-7.7) 10^3/u L Lymph # (Auto) 2.3 (0.8-4.8) 10^3/u L [place] # (Auto) 1.2 H (0.2-0.9) 10^3/u L Eos # (Auto) 0.1 (0.0-0.8) 10^3/u L Baso # (Auto) 0.0 (0.0-0.1) 10^3/u L Nucleated RBC % (a uto) 0 % Nucleated RBCs # 0.0 /100WBC Urine Opiates Scre en Negative (Negative) ng/mL Ur Barbiturates Sc reen Negative (Negative) ng/mL Ur Phencyclidine S crn Negative (Negative) ng/mL Ur Amphetamines Sc reen Positive H (Negative) ng/mL U Benzodiazepines Scrn Negative (Negative) ng/mL Urine Cocaine Scre en Negative (Negative) ng/mL U Marijuana (THC) Screen Negative (Negative) ng/mL Discharge Plan Discharge Patient Disposition: Admitted As Inpatient Clinical Impression: Suicidal ideation Condition: Stable Coding Level of Care Code ED Mobile Security Architect for Feliz Travis Exam Comprehensive
[2020-01-07 19:29] LABS: Amphetamines Screen Urine Positive (Negative); Barbiturates Screen Urine Negative (Negative); Benzodiazepines Screen Urine Negative (Negative); Cocaine Screen Urine Negative (Negative); Opiate Screen Urine Negative (Negative); PCP Screen Urine Negative (Negative); THC Screen Urine Negative (Negative)
[2020-01-07 19:31] LABS: Basophils % 0.2 %; Eosinophils # 0.1 10^3/uL (0.0-0.8); Eosinophils % 0.9 %; Hematocrit 50.2 % (42.0-52.0); Hemoglobin 16.1 g/dL (11.7-16.6); Lymphocytes # 2.3 10^3/uL (0.8-4.8); Lymphocytes % 18.3 %; Mean Corpuscular HGB Conc 32.1 g/dL (30.0-36.0); Mean Corpuscular Hemoglobin 27.9 pg (28.0-34.0); Mean Platelet Volume 9.4 fL (7.4-10.4); Monocytes # 1.2 10^3/uL (0.2-0.9); Monocytes % 9.5 %; Neutrophils % 70.6 %; Nucleated Red Blood Cells % 0 %; Platelet Count 323 10^3/cmm (130-400); Red Blood Count 5.77 10^6/uL (4.1-5.3); Red Cell Distribution Width 13.6 % (12.1-15.1); White Blood Count 12.8 10^3/uL (4.0-10.0)
[2020-01-07 19:53] LABS: Alanine Aminotransferase 70 U/L (0-41); Albumin Level 5.1 g/dL (3.5-5.2); Alkaline Phosphatase 100 IU/L (40-130); Anion Gap 15.9 (5-19); Aspartate Amino Transferase 54 U/L (0-40); Blood Urea Nitrogen 22 mg/dL (6-20); Calcium 9.9 mg/dL (8.5-10.5); Carbon Dioxide 28 mmol/L (22-29); Chloride 97 mmol/L (98-107); Globulin 3.5 g/dL (1.3-4.6); Glomerular Filtration Rate 75.3 mL/min (90-130); Glucose 78 mg/dL (65-115); Osmolality Calculated 286 mOsm/kg (285-295); Potassium 3.9 mmol/L (3.5-5.1); Sodium 137 mmol/L (136-145); Total Bilirubin 0.9 mg/dL (0.15-1.2); Total Protein 8.6 g/dL (6.6-8.7)
[2020-01-07 19:57] LABS: Acetaminophen < 5.0 ug/mL (10-30); Salicylate < 0.3 mg/dL (3-10)
--- NOTE | 2020-01-07 20:02 | PC.NURSE ---
called report to Sujatha in NPU
[2020-01-07 20:03] VITALS: RESP 18
[2020-01-07 20:12] VITALS: BP 152/96; PULSE 88; RESP 17; TEMP 37; O2SAT 81
[2020-01-07] MEDS: nicotine 2 mg Gum BUCCAL (21:24)
[2020-01-07] MEDS: trazodone 50 mg Tablet PO (21:53)
[2020-01-07] MEDS: hyDROXYzine 25 mg Capsule 50 MG PO (21:53)
[2020-01-07 22:00] VITALS: BP 152/96; PULSE 88; RESP 17; TEMP 37
--- NOTE | 2020-01-08 04:14 | PC.NURSE ---
trazodone /visteril trazodone 50mg po given for sleep. visteril 50mg Po given for anxiety Patient has not fallen to sleep and refuses to take any more medication
[2020-01-08 06:00] VITALS: BP 104/65; PULSE 66; RESP 17; TEMP 36.4; O2SAT 98
--- NOTE | 2020-01-08 08:27 | P.HP_ITS ---
Providers/Chief Complaint Admitting Physician: Julian Leslie MD Chief Complaint: wants to go into the stress unit HPI NPU History of Present Illness Valentin oMhamud is a 39 year old male HPI Narrative: 9-year-old male states he has been having increased suicidal thoughts over the last week. He states he was on Prozac and doing well but stopped taking it and is now having severe depression and suicidality. Patient is voluntarily wanting to get help. Denies any worsening or improving factors. From his psych eval on admission 16 days ago: 39-year-old male states has been having increased suicidal thoughts. He states he has been doing meth today and this felt like killing himself. He states he feels like taking a turkey baster full of acid. He states he feels like he needs to be admitted in the [facility]. He denies any alcohol use. He did admit to using methamphetamine. Denies any worsening improving factors. Associated symptoms: Reports depression and suicidal ideation. Valentin presented to the unit and very slowly acclimated to the individual group and milieu therapies as he is clearly in methamphetamine withdrawal with juxtaposing periods of lucidity and being near obtunded. Multiple efforts were made to get a reasonable assessment of the situation. Eventually at about 9:00 PM on the night of the day of admission he was alert again and was demanding to be discharged. He was confused feeling like he was on a voluntary commitment but he was advised that he was on a 96-hour hold and that that hold with in 12/30/2019 early in the morning. He reported that there were strange stacia on that led to him being in the hospital but he did not want to elaborate. He Asserting though that he was safe and there will be no reason for him to be held. He was advised that we would assess him daily and get collateral information on the assertions and his affidavits. He endorses being very anxious because he is homeless and he is afraid his shit will end up stolen if he does not get back out there right away. He did not have any clear plan of where to go and what he was going to do so he agreed to have a more robust conversation in the morning. We did review his last hospitalization which was in 2019 and he was seen by this development writer. He agreed that it represented a ac curate assessment of that historical data without significant changes in that time. An excerpt can be seen below. Summary from his discharge 13 days ago: Hospital Course The patient presented to the emergency room reporting increased suicidal thoughts. He endorsed methamphetamine use on December 22 and feeling like killing himself. He stated he felt like taking a turkey blaster full of acid. He endorsed needing to be admitted for psychiatric treatment for depression and suicidal ideation. He was admitted to the neuropsychiatric unit for definitive treatment of those issues. Additionally, once on the unit, it was clear that he was also suffering from paranoia and psychosis. He slowly acclimated to the individual, group, and milieu therapies provided. We started Prozac, which he had a positive response to, and he also had significant improvement from the resolution of the methamphetamine withdrawal, and the psychosis that was likely associated. During the hospitalization, the patient had routine laboratory studies which were within normal limits, except for a few outliers. Additionally, the patient had a general medical evaluation which was within normal limits and revealed no new acute processes. Discharge Summary At the time of discharge the patient denied all lethality, was absent psychosis, and mood and anxiety were well managed. The patient endorsed a plan to avoid all drugs of abuse and to follow-up with outpatient services, as recommended. The patient was evaluated and deemed to be absent credible lethality, and had achieved the maximum benefit from an inpatient hospitalization, and so he was discharged. History of present illness: The patient was discharged from this unit 13 days ago. He went to the [facility] in [place] for rehabilitation program. The immediately took away his Prozac and trazodone. He said because they took his medications away, the only lasted in the rehab program for 1 week. He then left and went to live with a friend. He immediately began using amphetamines. He realized that he was headed into the wrong direction again and decided to come back to this hospital with the hope of getting his medications refilled. He is intending to go to a sober living program in [place]. He has 1 targeted already. He believes he needs to do a phone interview which will not be able to be done for 2 more days. That is his desire to restart the medications and then facilitate transfer to that program in 2 days. Otherwise, he denies suicidal or homicidal ideation. He denies the presence of auditory or visual hallucinations. He denies side effects to his medications. He takes responsibility for a lot of bad judgment in the past 2 weeks and in fact the past 2 years. Laboratory Tests 01/07/20 19:03 Urine Opiates Screen Negative Ur Barbiturates Screen Negative Ur Phencyclidine Scrn Negative Ur Amphetamines Screen Positive H U Benzodiazepines Scrn Negative Urine Cocaine Screen Negative U Marijuana (THC) Screen Negative Past psychiatric history: Unchanged from that of 24 December 2019. Meds NPU Home Medications Medication Instructions Recorded Confirmed Last Taken Type fluoxetine 20 mg PO DAILY 30 Days #30 cap 12/27/19 01/07/20 Unknown Rx trazodone 50 mg PO BEDTIME PRN 30 Days #30 12/27/19 01/07/20 Unknown Rx tab Allergies Allergy/AdvReac Type Severity Reaction Status Date / Time No Known Allergies Allergy Verified 12/23/19 12:26 PFSH NPU PFSH: Social History Smoking and tobacco status: current every day smoker Mental Status Exam MSE Comments: Mental Status Exam: The patient is alert interpersonally engaged male appearing approximately his stated age. He is in no apparent physical or emotional distress. Eye contact is good. Information provided this internally consistent and consistent with that in the chart. However we have no way of verifying information regarding his activities since his last discharge. Appearance: hygiene is good; no gross neurological deficits., gait is unre markable; AIMS=0 Speech: Speech is of normal rate and rhythm and easily understood. Thought processes: Thought processes are abstract. Judgment is adequate for safety. Associations: intact Psychotic processes: There is no indication of guarding or paranoia. There is no attention to the internal stimuli. Auditory and visual hallucinations are denied. Judgment: Insight is fair. Problem solving skills are adequate for safety. Orientation: The patient is oriented to person, place time and situation. Memory: no deficits noted in immediate, intermediate, or remote spheres. Attention: The patient is alert and interpersonally engaged. Language: Verbalizations are coherent. Fund of knowledge: Fund of knowledge is adequate. Affect/Mood: Affect is consistent with a euthymic mood. pt denies suicidal ideation Affective range is appropriate. Psychosis: perception unimpaired except through cognitive distortion; reality testing intact. Vitals/I&O/Wt Last Vital Signs Temp 97.6 F 01/08/20 06:00 Pulse 66 01/08/20 06:00 Resp 17 01/08/20 06:00 BP 104/65 01/08/20 06:00 Pulse Ox 98 01/08/20 06:00 Weight last 48 hrs Weight 65.771 kg Data NPU : 01/07/20 19:15 01/07/20 19:15 A&P Assessment and plan (1) Homeless: Status: Acute (2) Methamphetamine abuse: Status: Acute (3) Depression: Status: Acute Additional A&P Information Assessment: Amphetamine intoxication Amphetamine use disorder Due to the psychiatric conditions and treatment listed in the Assessment and Plan - the patient requires continued hospitalization. Will provide a safe and therapeutic environment for patient.. Will continue inpatient treatment to allow for medication adjustment and monitoring. Will continue q15 min safety checks. Will continue current medications and monitor for medication side effects. We will restart fluoxetine 20 mg daily and trazodone 50 mg at bedtime. Monitor patient's mood, sleep, appetite, and behavior closely. Encourage patient to participate in individual and group therapeutic sessions on the [facility]. Estimated length of stay 5 days The expected benefits and potential side effects of patient's psychiatric medications were discussed with the patient. The patient understands and consents to treatment. CRITERIA FOR DISCHARGE: stable on medications and no longer an imminent threat to self or others Involuntary Hold Information 96 Hour Hold: 96 Hour Involuntary Admission: No Attestations NPU Medical Necessity Statement*: Patient will remain in the hospital another 2-3 nights to facilitate her reentry into the treatment program. Coding Level of Care Code Acute Binding Folder Machine for Feliz Travis Diagnoses Homeless Z59.0 Methamphetamine abuse F15.10 Depression F32.9
[2020-01-08] MEDS: fluoxetine 20 mg Capsule PO (09:06)
[2020-01-08 13:38] VITALS: BP 111/60; PULSE 80; RESP 18; TEMP 37.2
[2020-01-08] MEDS: hyDROXYzine 25 mg Capsule 50 MG PO (21:00)
[2020-01-08] MEDS: trazodone 50 mg Tablet PO (21:00)
--- NOTE | 2020-01-08 21:07 | PC.NURSE ---
PRN TRAZODONE & VISTARIL ADMINISTERED TRAZODONE 50 MG PER PT REQUEST FOR SLEEP AID & VISTARIL 50 MG FOR PT C/O OF ANXIETY. WILL MONITOR FOR MEDICATION EFFECTIVENESS.
[2020-01-08 22:00] VITALS: BP 134/61; PULSE 78; RESP 18; TEMP 36.6; O2SAT 97
[2020-01-09 06:00] VITALS: BP 130/53; PULSE 61; RESP 16; TEMP 36.8; O2SAT 98
[2020-01-09] MEDS: fluoxetine 20 mg Capsule PO (08:21)
[2020-01-09 13:12] VITALS: BP 112/60; PULSE 69; RESP 14; TEMP 36.9; O2SAT 96
--- NOTE | 2020-01-09 16:03 | PM.NDC ---
Diagnoses at Discharge Discharge Diagnosis (1) Homeless: Status: Resolved (2) Methamphetamine abuse: Status: Inactive Problem details: Patient is headed for a rehabilitation program in [place]. (3) Depression: Status: Resolved Reason for Visit Reason for Visit: wants to go into the stress unit Hospital Course Hospital Course Patient was admitted voluntarily. He said the things he said to the ER doc in order to get admitted and obtain his medicines. He had gone to a [facility] rehabilitation program and they threw his medication away. He came back to get more medicine, not knowing that he could have gone as a walk-in to [facility] on Friday. Discharge Summary As the above-described scenario indicates the patient wasn't suicidal or depressed, he having been on Prozac, which he said was effective. He said the trazodone was messing with his head and he wanted to stop it, to which I acceded. He is a voluntary patient asking for his [place] interests to be returned to him and to have his medicines. He denies suicidal or homicidal ideation, plan or intent. He is competent, per my assessment today, to resume the increased risk of a less-restrictive milieu, such as outpatient follow-up and a rehabilitation program. Involuntary Hold Information 96 Hour Hold: 96 Hour Involuntary Admission: No Mental Status Exam MSE Comments: The patient is alert, interpersonally engaged male who presents at his stated age. He is in no apparent physical or emotional distress. Eye contact is good. Information provided this internally consistent and consistent with that in the chart. However we have no way of verifying information regarding his activities since his last discharge. Appearance: hygiene is good; no gross neurological deficits. Gait is unremarkable; AIMS=0 Speech: Speech is of normal rate and rhythm and easily understood. Thought processes: abstract. Judgment is adequate for safety. Associations: intact Psychotic processes: There is no indication of guarding or paranoia. There is no attention to the internal stimuli. Auditory and visual hallucinations are denied. Judgment: Insight is fair. Problem solving skills are adequate for safety. Orientation: The patient is oriented to person, place time and situation. Memory: no deficits noted in immediate, intermediate, or remote spheres. Language: Verbalizations are coherent. Fund of knowledge: Fund of knowledge is adequate. Affect/Mood: Affect is consistent with a euthymic mood. Affective range is appropriate. The patient denies suicidal or homicidal ideation, plan or intent. Psychosis: perception unimpaired except through cognitive distortion; reality testing intact. Discharge Data Vitals: Last Vital Signs Temp 98.5 F 01/09/20 13:12 Pulse 69 01/09/20 13:12 Resp 14 01/09/20 13:12 BP 112/60 01/09/20 13:12 Pulse Ox 96 01/09/20 13:12 Discharge Plan Discharge Patient Disposition: Home Condition: Stable Prescriptions: Continued fluoxetine 20 mg Capsule 20 mg PO DAILY 30 Days Qty: 30 RF: 1 Discontinued trazodone 50 mg Tablet 50 mg PO BEDTIME PRN (Reason: Sleep) 30 Days Qty: 30 RF: 1 Discharge Orders: Discharge Order (Routine); Ordered 01/09/20 Ordered By: Dwayne Rice Discharge Diet: Usual diet Discharge Activity: Resume usual activity Discharge Date/Time: 01/09/20 16:24 Discharge Attestations NPU Time Spent in Discharge Care*: greater than 30 min Specific Discharge Activities: Specific discharge activities: educating patient, discussing with machine adjuster leader case trim/social workers/dc planners, documenting/other paperwork and evaluating patient/reviewing data Other discharge activites (optional): Detailed risk assessment. Status at Discharge: Cognitive status at discharge: cognitively intact, Behavioral status at discharge: cooperative, Functional status at discharge: independent ambulation Overall status at discharge: patient is back to baseline Coding Level of Care Code Acute Pointer Machine Operator for Feliz Fwmaya Diagnoses Homeless Z59.0 Methamphetamine abuse F15.10 Depression F32.9
[2020-01-09 16:16] VITALS: BP 112/60; PULSE 69; RESP 14; TEMP 36.9; O2SAT 96
== END 2020-01-09 16:24 | disposition home or self-care (01) | DRG 897 ==
LOC: ER 19:34 → NP 19:42
PROVIDERS: Emergency Medicine; Admitting Provider Psychiatry & Neurology Psychiatry; Visit Provider Psychiatry & Neurology Psychiatry
DX: F15.13 Other stimulant abuse with withdrawal (principal); F32.9 Major depressive disorder, single episode, unspecified; Z91.128 Patient's intentional underdosing of medication regimen for other reason; Z59.0 Homelessness; F17.210 Nicotine dependence, cigarettes, uncomplicated
CPT/HCPCS: 12345; 36415; 80053; 80306; 80307; 85025; 99284